=== PATIENT | male | born 1985 | race African-American/Black ===

== ENCOUNTER 2024-07-20 23:11 | Observation (INO) | payer SELFPAY ==
[~2024-07-20] VITALS: Ht 180.3 cm; Wt 88.9 kg
[~2024-07-20 23:11] MED LIST: BENTYL10 MG PO
[2024-07-20 23:20] VITALS: BP 182/80
[2024-07-20] MEDS ORDERED: SODIUM CHLORIDE 0.9% 1,000 ML IV ONE (23:40)
[2024-07-20] MEDS ORDERED: Thiamine 200 MG/2 ML VIAL IV ONE (23:40)
[2024-07-20 23:47] LABS: BASO % 0.3 % (0.0-1.0); EOS # 0.1 10*3/uL (0.0-0.4); HEMATOCRIT 43.4 % (42.0-52.0); MEAN CELL VOLUME 95.4 fl (80.0-94.0); MEAN CORPUSCULAR HGB 32.7 pg (27.0-31.0); MEAN CORPUSCULAR HGB CONC 34.3 g/dl (33.0-37.0); MEAN PLATELET VOLUME 10.5 fl (9.6-12.3); MONO # 0.6 10*3/uL (0.1-1.0); MONO % 9.3 % (3.0-9.0); NEUT # 2.7 10*3/uL (2.3-7.9); NEUT % 41.2 % (47.0-73.0); PLATELET COUNT AUTOMATED 263 10*3/uL (130-400); RED BLOOD COUNT 4.55 10*6/uL (4.50-5.90); RED CELL DISTRI WIDTH 13.1 % (0-14.5); WHITE BLOOD COUNT 6.4 10*3/uL (4.8-10.8)
[2024-07-20 23:57] LABS: ACT PARTIAL THROMBO TIME 27.1 SECONDS (20.0-32.1)
[2024-07-21 00:07] VITALS: BP 166/87
[2024-07-21 00:18] LABS: ALKALINE PHOSPHATASE 76 U/L (46-116); BUN 19 mg/dl (9-23); CHLORIDE 100 mmol/L (98-107); POTASSIUM 3.5 mmol/L (3.4-5.1); SGPT/ALT 55 U/L (5-49); TOTAL PROTEIN 7.4 gm/dL (6.0-8.0)
[2024-07-21 00:32] VITALS: BP 157/76
[2024-07-21 01:37] VITALS: BP 152/76
[2024-07-21] MEDS ORDERED: Ondansetron Hydrochloride 4 MG/2 ML VIAL IV PRN (05:05)
[2024-07-21] MEDS ORDERED: BISACODYL 5 MG TAB PO PRN (05:05)
[2024-07-21] MEDS ORDERED: BISACODYL 10 MG SUPP R PRN (05:05)
[2024-07-21] MEDS ORDERED: ACETAMINOPHEN 650 MG SUPP R PRN (05:05)
[2024-07-21] MEDS ORDERED: Magnesium Hydroxide 30 ML UDC PO PRN (05:05)
[2024-07-21] MEDS ORDERED: ACETAMINOPHEN 325 MG TAB PO PRN (05:05)
[2024-07-21 05:59] VITALS: BP 157/76
[2024-07-21] MEDS ORDERED: IOHEXOL 350 MG/ML 100 ML VIAL IV ONE ×2 (06:05→06:25)
[2024-07-21] MEDS ORDERED: SODIUM CHLORIDE 0.9% 100 ML BAG IV ONE (06:05)
[2024-07-21 06:21] LABS: BASO % 0.3 % (0.0-1.0); EOS # 0.2 10*3/uL (0.0-0.4); HEMATOCRIT 42.8 % (42.0-52.0); MEAN CELL VOLUME 95.7 fl (80.0-94.0); MEAN CORPUSCULAR HGB 32.4 pg (27.0-31.0); MEAN CORPUSCULAR HGB CONC 33.9 g/dl (33.0-37.0); MEAN PLATELET VOLUME 10.4 fl (9.6-12.3); MONO # 0.5 10*3/uL (0.1-1.0); MONO % 8.4 % (3.0-9.0); NEUT # 2.2 10*3/uL (2.3-7.9); NEUT % 37.2 % (47.0-73.0); PLATELET COUNT AUTOMATED 248 10*3/uL (130-400); RED BLOOD COUNT 4.47 10*6/uL (4.50-5.90)
[2024-07-21] MEDS ORDERED: SODIUM CHLORIDE 0.9% 100 ML IV ONE (06:26)
[2024-07-21 07:58] LABS: ALKALINE PHOSPHATASE 63 U/L (46-116); BUN 14 mg/dl (9-23); CHLORIDE 102 mmol/L (98-107); CHOLESTEROL 166 mg/dL (<200); LDL CHOLESTEROL 101 mg/dL (9-159); POTASSIUM 4.1 mmol/L (3.4-5.1); SGPT/ALT 50 U/L (5-49); TOTAL PROTEIN 6.7 gm/dL (6.0-8.0); TRIGLYCERIDES 125 mg/dl (<150)
[2024-07-21 08:27] LABS: VITAMIN D, 25-HYDROXY 47.3 ng/mL (30-100)
[2024-07-21 09:01] VITALS: BP 145/81
[2024-07-21] MEDS ORDERED: Amoxicillin/Clavulanate Pota 875 MG TAB PO SCH (10:00)
[2024-07-21] MEDS ORDERED: amLODIPine besylate 5 MG TAB PO SCH (10:00)
[2024-07-21] MEDS ORDERED: Enoxaparin Sodium 40 MG/0.4 ML SYR SC SCH (10:00)
[2024-07-21] MEDS ORDERED: Losartan Potassium 25 MG TAB PO SCH (10:00)
[2024-07-22 05:06] LABS: HBsAG SCREEN Negative (Negative); HCV Ab Non Reactive (Non Reactive); HEP B CORE Ab, IgM Negative (Negative)
== END 2024-07-21 15:45 | disposition left against medical advice (07) ==
LOC: ED 23:11 → EDHOLD 07-21 04:04
PROVIDERS: Internal Medicine; Student in an Organized Health Care Education/Training Program; ADMIT Internal Medicine; ATTEND Internal Medicine
DX: I16.1 Hypertensive emergency (principal); G45.9 Transient cerebral ischemic attack, unspecified; H53.8 Other visual disturbances; R00.2 Palpitations; R42 Dizziness and giddiness; J01.00 Acute maxillary sinusitis, unspecified; Z79.899 Other long term (current) drug therapy